=== PATIENT | male | born 1990 | race African-American/Black ===

== ENCOUNTER 2024-06-02 22:47 | Emergency (ER) | payer SELFPAY ==
[2024-06-02 22:52] VITALS: BP 139/78; PULSE 67; RESP 19; TEMP 36.3; O2SAT 100
--- NOTE | 2024-06-03 01:29 | PC.NURSE ---
pt seen walking out of er with steady gait. No distress noted. Pt did not want to wait any longer to see a provider.
== END 2024-06-03 01:34 | disposition left against medical advice (07) ==
DX: R51.9 Headache, unspecified (principal)
CPT/HCPCS: 99199